=== PATIENT | male | born 1980 | race Caucasian/White ===

== ENCOUNTER 2016-09-22 17:04 | Emergency (ER) | payer MEDICAID, OTHER ==
[2016-09-22 17:09] VITALS: BP 128/86; PULSE 60; RESP 16; TEMP 97.9; O2SAT 98
[2016-09-22] MEDS ORDERED: CEPHALEXIN 500MG PREPACK#4 BTL TAKEHOME ONE (17:25)
[2016-09-22] MEDS ORDERED: TDAP ADULT 0.5 ML INJ (BOOSTRIX) IM ONE (17:25)
--- NOTE | 2016-09-22 17:28 | EDPHY ---
H & P Smoking Status: Never smoked Time Seen by Provider: 09/22/16 17:14 HPI/ROS: CHIEF COMPLAINT: [place] left thumb HISTORY OF PRESENT ILLNESS: 36-year-old male presents to the emergency department complaining of retained fishhook in his left thumb. The patient was fishing and accidentally got caught in his thumb just prior to arrival. He is right-hand dominant. He is unsure of his last tetanus shot. He did try to remove fishhook on his own unsuccessfully. ROS: Denies numbness or tingling in his fingers, any other injuries or trauma. (Beverley Vazquezrinjimmy Dean) Past Medical/Surgical History: low cortisol (Genna Vazquez) Social History: Single and lives in [place] (Genna Vazquez) Physical Exam: On examination the patient has a small retained fishhook to the distal, palmar aspect of the left thumb. It does not extend into the D IP joint. No nail involvement noted. No signs of infection. Full range of motion of his finger. No palpable bony tenderness. (Beverley Vazquezrina Jermaine) Constitutional: Initial Vital Signs Temperature (C) 36.6 C 09/22/16 17:07 Heart Rate 60 09/22/16 17:07 Respiratory Rate 16 09/22/16 17:07 Blood Pressure 128/86 H 09/22/16 17:07 O2 Sat (%) 98 09/22/16 17:07 O2 Delivery Mode Room Air Allergies/Adverse Reactions: No Known Allergies Allergy (Verified 09/22/16 17:06) Home Medications: Medication Instructions Recorded Cephalexin [Keflex] 500 mg PO QID #20 cap 09/22/16 Dexamethasone 1 mg PO 09/22/16 MDM/Departure - MDM Procedures: After consent was obtained from the patient, the wound was cleansed with chlorhexidine and small amount of 1% lidocaine without epinephrine was instilled in the puncture wound at the site of the fishhook. Small incision was made with 11. Blade scalpel and the fishhook was easily removed. The wound was then thoroughly irrigated. No sutures applied. (Beverley Vazquezrina Jermaine) Medications Given: Discontinued Medications Cephalexin (Keflex 500 Mg Prepack#4) 1 btl TAKEHOME EDNOW ONE PRN Reason: Protocol Stop: 09/22/16 17:26 Last Admin: 09/22/16 17:28 Dose: 1 btl Diphtheria/Tetanus/Acell Pertussis (Boostrix) 0.5 ml IM .ONCE ONE Stop: 09/22/16 17:26 Last Admin: 09/22/16 17:27 Dose: 0.5 ml ED Course/Re-evaluation: Patient was given wound care instructions. Patient will be started on oral Keflex to prevent infection given the wound being in the distal aspect of the thumb. Patient will return if he notices any signs or symptoms of infection. His tetanus shot was updated. (Genna Vazquez) The patient was evaluated and managed by the Physician Workforce Specialist/ Nurse Practitioner. I discussed the patient's presentation and course with the midlevel provider with them and agree with the evaluation. My co-signature indicates that I have reviewed this chart and I agree with the findings and plan of care as documented. I am the secondary supervising physician. (Mirian Salmeron) - Depart Disposition: Home, Routine, Self-Care Clinical Impression: [place] removal left thumb Condition: Good Instructions: Acute Wounds (ED) Additional Instructions: Keflex 500 mg 4 times daily for 5 days to prevent infection. You may soak your finger in warm water to prevent any kind of infection. Return if he notices any signs or symptoms of infection such as redness, swelling, increased pain, fever, purulent drainage. Ibuprofen 600 mg every 8 hours as needed for pain. You were given a tetanus shot today in the emergency department. Prescriptions: Cephalexin [Keflex] 500 mg PO QID #20 cap Referrals: Keenan Rojas MD [Medical Doctor] - 2-3 days, if not improved (Primary care provider computer operations technician)
== END 2016-09-22 17:35 | disposition home or self-care (01) ==
PROC: 3E0234Z Introduction of Serum, Toxoid and Vaccine into Muscle, Percutaneous Approach (ICD-10-PCS; principal; 2016-09-22)
PROC: 0JCK0ZZ Extirpation of Matter from Left Hand Subcutaneous Tissue and Fascia, Open Approach (ICD-10-PCS; principal; 2016-09-22)
DX: S60.352A Superficial foreign body of left thumb, initial encounter (principal); Z23 Encounter for immunization; W45.8XXA Other foreign body or object entering through skin, initial encounter; Y99.8 Other external cause status; Y93.89 Activity, other specified